=== PATIENT | female | born 1945 | race Caucasian/White ===

== ENCOUNTER → 2016-09-30 | Outpatient (CLI) | payer OTHER ==
[~2016-09-30] MED LIST: ADDERALL PO; ADVAIR 250-501 EACH IH; ADVAIR 2501 DISK W/D PO; ALPRAZOLAM PO; ALPRAZOLAM0.5 MG PO; AMLODIPINE BESY10 MG PO; ASPIRIN81 M1 PO; ASPIRINEC PO; AVANDIA PO; AVAPRO PO; AZITHROMYCIN500 MG PO; BAYER CHEWABLE81 MG PO; CALCITRIOL0.25 MCG PO; CARVEDILOL6.25 MG PO; COMBIVENT INH14.7 G1 IH; COMBIVENT INH14.7 GM INH; COREG PO; COREG6.25 M1 PO; DOXYCYCLINE150 MG PO; FERROUS SULFATE PO; FUROSEMIDE40 MG PO; HUMALOG100 U/M1 SUBQ; IPRAT-ALBUT 0.5-3 ML IH; IPRATROPIUM0.2 MG/ML NEB; IRON TABLETS1 TAB PO; IRON325 ( 65 ) PO; KCL PO; KLOR-CON PO; LANTUS SOLOSTAR3 ML SUBQ; LASIX PO; LASIX20 MG PO; LAXATIVE OF CHOICE; LEVAQUIN250 MG PO; LEVAQUIN750 MG PO; LIPITOR PO; LIPITOR40 MG PO; LORTAB 10-5001 EACH PO; METFORMIN PO; MICRO-K PO; NITROGYLCERIN SUBLINGUAL; NORTRIPTYLINE H50 MG PO; NORVASC PO; NOVOLOG100 UNIT/1; PAMELOR PO; PANTOPRAZOLE SO40 MG PO; PEPCID COMPLET1 EAC1 PO; PHENERGAN25 MG PO; PREDNISONE PO; PREDNISONE10 MG PO; PROAIR HFA8.5 GM IH; PROAIR HFA8.5 GM INH; PROTONIX PO; SPIRIVA18 MCG INH; TAMIFLU30 MG PO; TUSSIONEX PENN473 ML PO; VICODIN 5/500 T1 TAB PO; XANAX0.5 M1 PO; XANAX0.5 MG PO; ZITHROMAX PO; ZYLOPRIM PO; ZYLOPRIM100 MG PO
[2016-09-30 11:49] LABS: CHOLESTEROL 134 mg/dL (0-200); HDL CHOLESTEROL 34 mg/dL (35-95); LDL CHOLESTEROL 77 mg/dL (-130); LDL/HDL RATIO 2 RATIO (0-4); TRIGLYCERIDES 116 mg/dL (10-160)
== END | disposition home or self-care (01) ==
LOC: CLAB 09:20
PROVIDERS: Internal Medicine Endocrinology, Diabetes & Metabolism
DX: I50.9 Heart failure, unspecified (principal); J96.10 Chronic respiratory failure, unspecified whether with hypoxia or hypercapnia; E11.29 Type 2 diabetes mellitus with other diabetic kidney complication; N18.9 Chronic kidney disease, unspecified
CPT/HCPCS: 36415; 80061; 83036

== ENCOUNTER 2017-01-08 21:14 | Emergency (ER) | payer OTHER ==
--- NOTE | ~2017-01-08 | CR151 ---
[facility]. [facility] A Service of [facility] & [facility] RADIOLOGY TEXT RESULTS PATIENT: ANDRZEJ ANGUIANO LOCATION: SED : 44 UNIT #: [id number] AGE: [address]: Chery Flaherty MD SEX: F ORDER DR: [id number] [place] [address] [id number] E MR#: [id number] Acc #: [id number] NAME: ANDRZEJ ANGUIANO : 1945 SEX: F STUDY DATE/TIME: 01/08/2017 21:53 UNIT: SED ROOM: STUDY DESCRIPTION: CR Hip Min 2 Views Rt Attending Physician: Chery Flaherty M.D. Ordering Physician: Chery Flaherty M.D. Primary Care Physician: Govind Guzman M.D. MEDICAL IMAGING REPORT This report is preliminary unless electronic signature is present. EXAM Right hip series INDICATIONS Right hip pain after a fall this morning. PROCEDURE Frontal view pelvis, lateral view right hip. COMPARISON None FINDINGS No acute fracture or dislocation. IMPRESSION No acute findings. Dictated by... Petros Berkowitz M.D. THIS IS AN ELECTRONICALLY VERIFIED REPORT Petros Berkowitz M.D. at 01/09/2017 9:32 AM EED/psc TD: 01/08/2017 23:19 JOB #: [id number] MEDICAL IMAGING REPORT Page 1 of 1
--- NOTE | ~2017-01-08 | CR173 ---
[facility]. [facility] A Service of [facility] RADIOLOGY TEXT RESULTS PATIENT: ANDRZEJ ANGUIANO LOCATION: SED : 44 UNIT #: [id number] AGE: [address]: Chery Flaherty MD SEX: F ORDER DR: [id number] [place] [address] [id number] E MR#: [id number] Acc #: [id number] NAME: ANDRZEJ ANGUIANO. : 1945 SEX: F STUDY DATE/TIME: 01/08/2017 21:53 UNIT: SED ROOM: STUDY DESCRIPTION: CR Knee 3 Views Rt Attending Physician: Chery Flaherty M.D. Ordering Physician: Chery Flaherty M.D. Primary Care Physician: Govind Guzman M.D. MEDICAL IMAGING REPORT This report is preliminary unless electronic signature is present. EXAM Right knee series INDICATIONS Right knee pain after fall this morning. PROCEDURE Three views of the right knee COMPARISON 01/03/2016 FINDINGS No acute fracture or dislocation. Tricompartmental arthrosis. Moderate sized joint effusion. IMPRESSION 1. 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 No fracture. 2. Moderate sized joint effusion is new. This could be seen in the setting of ligamentous injury. Dictated by... Petros Berkowitz M.D. THIS IS AN ELECTRONICALLY VERIFIED REPORT Petros Berkowitz M.D. at 01/09/2017 9:32 AM EED/antonieta TD: 01/08/2017 23:15 JOB #: [id number] [facility] A Service of [facility] RADIOLOGY TEXT RESULTS PATIENT: ANDRZEJ ANGUIANO LOCATION: SED : 44 UNIT #: [id number] AGE: [address]: Chery Flaherty MD SEX: F ORDER DR: MEDICAL IMAGING REPORT Page 1 of 1
--- NOTE | ~2017-01-08 | CR107 ---
[facility]. [facility] A Service of [facility] & [facility] RADIOLOGY TEXT RESULTS PATIENT: ANDRZEJ ANGUIANO LOCATION: SED : 44 UNIT #: [id number] AGE: [address]: Chery Flaherty MD SEX: F ORDER DR: [id number] [place] [id number] E MR#: [id number] Acc #: [id number] NAME: ANDRZEJ ANGUIANO : 1945 SEX: F STUDY DATE/TIME: 01/08/2017 21:53 UNIT: SED ROOM: STUDY DESCRIPTION: CR Femur 2 Views Rt Attending Physician: Chery Flaherty M.D. Ordering Physician: Chery Flaherty M.D. Primary Care Physician: Govind Guzman M.D. MEDICAL IMAGING REPORT This report is preliminary unless electronic signature is present. EXAM Right femur series. INDICATION Right upper leg pain after a fall this morning. PROCEDURE Four views of the right femur. COMPARISON None. FINDINGS No acute fracture or dislocation. IMPRESSION No acute findings. Dictated by... Petros Berkowitz M.D. THIS IS AN ELECTRONICALLY VERIFIED REPORT Petros Berkowitz M.D. at 01/09/2017 9:32 AM YNES/swathi TD: 01/08/2017 23:21 JOB #: [id number] MEDICAL IMAGING REPORT Page 1 of 1
[~2017-01-08 21:14] MED LIST changes: -NOVOLOG100 UNIT/1
[2017-01-08] MEDS ORDERED: NOVOLOG100 UNIT/1 (21:23)
== END 2017-01-08 23:00 | disposition home or self-care (01) ==
LOC: SED 21:14
DX: S89.81XA Other specified injuries of right lower leg, initial encounter (principal); E11.9 Type 2 diabetes mellitus without complications; I10 Essential (primary) hypertension; Z85.038 Personal history of other malignant neoplasm of large intestine; W01.0XXA Fall on same level from slipping, tripping and stumbling without subsequent striking against object, initial encounter; Y92.009 Unspecified place in unspecified non-institutional (private) residence as the place of occurrence of the external cause
CPT/HCPCS: 29505; 73502; 73552; 73562; 96372; 99283; J2270

== ENCOUNTER → 2017-02-11 | Outpatient (CLI) | payer OTHER ==
[~2017-02-11] MED LIST changes: +NOVOLOG100 UNIT/1
[2017-02-11 11:55] LABS: ALBUMIN SERUM 3.5 g/dL (3.5-5.0); BILIRUBIN,TOTAL 0.3 mg/dL (0.2-2.0); BUN/CREATININE RATIO 15.26; CALCIUM SERUM 10.1 mg/dL (8.4-10.2); CREATININE SERUM 1.9 mg/dL (0.6-1.4); GLOM FILT RATE Estimated 25.9 mL/min (>60); POTASSIUM 4.2 mmol/L (3.5-5.1); PROTEIN TOTAL SERUM 6.6 g/dL (6.0-8.3)
[2017-02-12 15:15] LABS: MICROALB UR (PNL) 13.4 mg/dL (***)
== END | disposition home or self-care (01) ==
LOC: CLAB 10:17
PROVIDERS: Internal Medicine Endocrinology, Diabetes & Metabolism
DX: E11.65 Type 2 diabetes mellitus with hyperglycemia (principal)
CPT/HCPCS: 36415; 80053; 80061; 82043; 82570; 83036

== ENCOUNTER → 2017-03-05 | Outpatient (CLI) | payer OTHER ==
[2017-03-05 09:22] LABS: BASOPHIL# 0.1 X10e3 (0-0.3); BASOPHIL% 0.7 % (0-2.5); EOSINOPHIL# 0.3 X10e3 (0-0.7); EOSINOPHIL% 2.6 % (0.0-7.0); HEMOGLOBIN 9.4 gm/dL (12.0-16.0); LYMPHOCYTE# 2.3 X10e3 (1.0-3.5); LYMPHOCYTE% 18.1 % (17.0-45.0); MEAN CELL VOLUME 81.7 FL (83-96); MEAN CORPUSCULAR HEMOGLOBIN 25.6 PG (28-34); MEAN CORPUSCULAR HGB CONC 31.3 g/dL (30-36); MEAN PLATELET VOLUME 7.7 FL (6.5-11.5); MONOCYTE% 7.8 % (3.0-12.0); NEUTROPHIL# 8.9 X10e3 (1.5-7.1); NEUTROPHIL% 70.8 % (40-75); PLATELET COUNT 414 X10e3 (140-420); RED BLOOD COUNT 3.68 X10e (3.90-5.30); RED CELL DISTRIBUTION WIDTH 16.9 % (11.0-15.5); WHITE BLOOD COUNT 12.5 X10e3 (4.0-10.5)
[2017-03-05 09:26] LABS: DIFF IND NO
[2017-03-05 10:12] LABS: ALBUMIN SERUM 3.6 g/dL (3.5-5.0); BILIRUBIN,TOTAL 0.3 mg/dL (0.2-2.0); CREATININE SERUM 2.5 mg/dL (0.6-1.4); GLOM FILT RATE Estimated 18.6 mL/min (>60); PHOSPHOROUS 4.1 mg/dL (2.5-4.6); POTASSIUM 4.4 mmol/L (3.5-5.1); PROTEIN TOTAL SERUM 6.6 g/dL (6.0-8.3); URIC ACID 6.1 mg/dL (2.6-7.2)
[2017-03-08 09:40] LABS: CALCIUM (PTHINTACT) 10.3 mg/dL (8.6-10.4)
== END | disposition home or self-care (01) ==
LOC: CLAB 08:56
PROVIDERS: Internal Medicine Nephrology
DX: N18.4 Chronic kidney disease, stage 4 (severe) (principal)
CPT/HCPCS: 36415; 80053; 82310; 82728; 83540; 83550; 83970; 84100; 84550; 85025